=== PATIENT | female | born 1995 | race American Indian/Alaskan Native ===

== ENCOUNTER 2021-09-27 20:44 | Emergency (ER) | payer MEDICAID ==
[2021-09-27] MEDS ORDERED: LACTATED RINGERS 1,000 ML IV ONE (21:28)
[2021-09-27 22:28] VITALS: BP 114/70
--- NOTE | 2021-09-27 23:37 | Emergency Department Report ---
HPI - General Chief Complaint: Upper Respiratory Infection PUI?: Yes Time Seen by Provider: 09/27/21 22:48 - HPI HPI: MSE 5 The patient is a 26-year-old female present with a chief complaint of URI symptoms. The patient states she has a history of seasonal allergies which usually flareup around this time leading to URIs. The patient states since last night she has had a sore throat watery eyes and a cough productive of clear with a tint of green sputum. Patient denies history of fever, abdominal pain or vaginal bleeding. The patient is approximately 28 weeks gestational age and was seen by OB prior to being sent to the ED. The patient was placed on the monitor for approximately 45-60 minutes. Patient has not been vaccinated against Covid ED Past Medical Hx - Past Medical History Previous Medical History?: No Hx Hypertension: Yes (PI 2017) - Surgical History Past Surgical History?: No - Family History Family history: no significant - Social History Smoking Status: Never Smoker Substance Use Type: None (Denies illicit drug use) - Medications Home Medications: Home Medications Medication Instructions Recorded Confirmed Last Taken Type Azithromycin [Zithromax Z-MUSTAPHA] 0 mg PO DAILY #6 tab 09/28/21 Unknown Rx ED Review of Systems ROS: Stated complaint: COLD SX Other details as noted in HPI Constitutional: denies: fever Eyes: denies: eye pain ENT: throat pain, congestion Respiratory: cough Cardiovascular: denies: chest pain Endocrine: no symptoms reported Gastrointestinal: denies: abdominal pain Genitourinary: denies: abnormal menses Musculoskeletal: denies: back pain Neurological: denies: headache Physical Exam - Physical Exam Vital Signs: Vital Signs 09/27/21 09/27/21 09/27/21 21:18 21:19 21:23 Temperature 99.1 F Pulse Rate 93 H 89 90 Respiratory 18 Rate Blood Pressure 115/75 Blood Pressure 115/75 [Right] O2 Sat by Pulse 100 100 100 Oximetry 09/27/21 09/27/21 09/27/21 21:28 21:33 21:38 Temperature Pulse Rate 97 H 94 H 97 H Respiratory Rate Blood Pressure Blood Pressure [Right] O2 Sat by Pulse 100 99 99 Oximetry 09/27/21 09/27/21 09/27/21 21:43 21:48 22:23 Temperature 99.5 F Pulse Rate 95 H 86 89 Respiratory 18 Rate Blood Pressure Blood Pressure 114/70 [Right] O2 Sat by Pulse 99 98 99 Oximetry Physical Exam: GENERAL: The patient is well-developed well-nourished female lying on stretcher not appearing to be in acute distress. [] HEENT: Normocephalic. Atraumatic. Extraocular motions are intact. Patient has moist mucous membranes. Oropharynx clear NECK: Supple. Trachea midline CHEST/LUNGS: Clear to auscultation. There is no respiratory distress noted. HEART/CARDIOVASCULAR: Regular. There is no tachycardia. There is no gallop rub or murmur. ABDOMEN: Abdomen is soft, nontender. Patient has normal bowel sounds. Gravid SKIN: There is no rash. There is no edema. There is no diaphoresis. NEURO: The patient is awake, alert, and oriented. The patient is cooperative. The patient has no focal neurologic deficits. The patient has normal speech. GCS 15 MUSCULOSKELETAL: There is no evidence of acute injury. ED Course Vital Signs 09/27/21 09/27/21 09/27/21 21:18 21:19 21:23 Temperature 99.1 F Pulse Rate 93 H 89 90 Respiratory 18 Rate Blood Pressure 115/75 Blood Pressure 115/75 [Right] O2 Sat by Pulse 100 100 100 Oximetry 09/27/21 09/27/21 09/27/21 21:28 21:33 21:38 Temperature Pulse Rate 97 H 94 H 97 H Respiratory Rate Blood Pressure Blood Pressure [Right] O2 Sat by Pulse 100 99 99 Oximetry 09/27/21 09/27/21 09/27/21 21:43 21:48 22:23 Temperature 99.5 F Pulse Rate 95 H 86 89 Respiratory 18 Rate Blood Pressure Blood Pressure 114/70 [Right] O2 Sat by Pulse 99 98 99 Oximetry - Consultations Consultation #1: 09/28/21 00:44 DIRECTOR OF OUTREACH paged 09/28/21 00:[address] Jimenez for Z-Mustapha. Patient may be discharged and follow-up in 1 week ED Medical Decision Making - Radiology Data Radiology results: report reviewed (Chest x-ray), image reviewed (Chest x-ray) interpreted by me: Chest x-ray-no definite focal infiltrates, no pneumothorax [facility] [address] [place] [address] XRay Report Signed Patient: AMANDA SIERRA MR#: [id number] : 1995 Acct:[id number] Age/Sex: 26 / F ADM Date: 09/27/21 Loc: [facility] 2014- Attending Dr: Ordering Physician: ANGEL ALLEN MD Date of Service: 09/27/21 Procedure(s): XR chest 1V ap Accession Number(s): [id number] cc: ANGEL ALLEN MD Fluoro Time In Minutes: CHEST 1 VIEW 09/27/2021 10:38 PM INDICATION / CLINICAL INFORMATION: chest pain. COMPARISON: None available. FINDINGS: SUPPORT DEVICES: None. HEART / MEDIASTINUM: No significant abnormality. LUNGS / PLEURA: No significant pulmonary or pleural abnormality. No pneumothorax. ADDITIONAL FINDINGS: No significant additional findings. IMPRESSION: 1. No acute findings. Signer Name: Tanya Camp MD Signed: 09/27/2021 11:41 PM Workstation Name: [id number] Transcribed By: DT Dictated By: Jimenez Camp MD Electronically Authenticated By: Jimenez Camp MD Signed Date/Time: 09/27/212340 DD/ 40 TD/TT: Print Cancel - Medical Decision Making 2-minute walking SPO2 90% on room air - Differential Diagnosis Sinusitis, bronchitis, pneumonia, Covid, influenza Critical care attestation.: If time is entered above; I have spent that time in minutes in the direct care of this critically ill patient, excluding procedure time. ED Disposition Clinical Impression: URI (upper respiratory infection) Disposition: HOME / SELF CARE / HOMELESS Is pt being admited?: No Does the pt Need Aspirin: No Condition: Stable Instructions: Form - Movement Counts, COVID-19: How to Protect Yourself and Others - CDC, Labor/ Labor Instructions, Upper Respiratory Infection, Adult, [id number] Additional Instructions: Return to the emergency department should you develop worsening symptoms, inability to tolerate food or liquids, high fever or any other concerns Prescriptions: Azithromycin [Zithromax Z-MUSTAPHA] 0 mg PO DAILY #6 tab Referrals: ELSY RAMIREZ MD [Primary Care Provider] - 7 Days Forms: [facility] Discharge Summary Time of Disposition: 00:53
--- NOTE | 2021-09-27 23:45 | XRay Report ---
CHEST 1 VIEW 09/27/2021 10:38 PM INDICATION / CLINICAL INFORMATION: chest pain. COMPARISON: None available. FINDINGS: SUPPORT DEVICES: None. HEART / MEDIASTINUM: No significant abnormality. LUNGS / PLEURA: No significant pulmonary or pleural abnormality. No pneumothorax. ADDITIONAL FINDINGS: No significant additional findings. IMPRESSION: 1. No acute findings. Signer Name: Tanya Camp MD Signed: 09/27/2021 11:41 PM Workstation Name: [id number]
== END 2021-09-28 01:35 | disposition home or self-care (01) ==
LOC: ED 20:44 → TRG 20:44 → APU 20:46 → TRG 20:46 → APU 20:46 → EDSTATUS 22:13 → ED 09-28 01:35
DX: O26.893 Other specified pregnancy related conditions, third trimester (principal); J06.9 Acute upper respiratory infection, unspecified; I10 Essential (primary) hypertension; Z3A.28 28 weeks gestation of pregnancy
CPT/HCPCS: 59025; 71045; 87400; 99283

== ENCOUNTER 2021-12-10 12:14 | Outpatient (CLI) | payer MEDICAID ==
[2021-12-10 13:04] VITALS: BP 103/62
== END 2021-12-10 17:06 | disposition home or self-care (01) ==
LOC: TRG 12:14 → APU 12:19 → TRG 17:06
PROVIDERS: ATTEND Obstetrics & Gynecology
DX: Z34.93 Encounter for supervision of normal pregnancy, unspecified, third trimester (principal); Z3A.39 39 weeks gestation of pregnancy
CPT/HCPCS: 59025

== ENCOUNTER 2021-12-11 10:27 | Inpatient (IN) | payer MEDICAID ==
[2021-12-11] MEDS ORDERED: LACTATED RINGERS 1,000 ML IV SCH ×2 (11:00→13:30)
[2021-12-11 12:41] LABS: Basophils % (Auto) 0.5 % (0.0-1.8); Eosinophils # (Auto) 0.1 K/mm3 (0.0-0.4); Eosinophils % (Auto) 1.4 % (0.0-4.3); Hematocrit 38.5 % (30.3-42.9); Hemoglobin 12.9 gm/dl (10.1-14.3); Lymphocytes # (Auto) 1.7 K/mm3 (1.2-5.4); Lymphocytes % (Auto) 29.8 % (13.4-35.0); Mean Corpuscular HGB Conc 34 % (30-34); Mean Corpuscular Volume 94 fl (79-97); Monocytes # (Auto) 0.6 K/mm3 (0.0-0.8); Monocytes % (Auto) 10.2 % (0.0-7.3); Platelet Count 137 K/mm3 (140-440); Red Cell Distribution Width 14.1 % (13.2-15.2)
[2021-12-11] MEDS ORDERED: LIDOCAINE (2%) 20 MG/1 ML VIAL 20 ML MDV INFILTRATI ONE (13:20)
[2021-12-11] MEDS ORDERED: ePHEDrine SULFATE 50 MG/1 ML INJ IV PRN ×3 (13:20→19:06)
[2021-12-11] MEDS ORDERED: OXYTOCIN 10 UNIT/1 ML INJ IM PRN (13:20)
[2021-12-11] MEDS ORDERED: ONDANSETRON 4 MG/2 ML INJ IV PRN (13:20)
[2021-12-11] MEDS ORDERED: TERBUTALINE 1 MG/1 ML INJ SUB-Q PRN (13:20)
[2021-12-11] MEDS ORDERED: METHYLERGONOVINE MALEATE 0.2 MG/ML VIAL IM PRN (13:20)
[2021-12-11] MEDS ORDERED: ACETAMINOPHEN 325 MG TAB PO PRN (13:20)
[2021-12-11] MEDS ORDERED: fentaNYL 100 MCG/2 ML INJ IV PRN (13:20)
[2021-12-11] MEDS ORDERED: NalbUPHINE 10 MG/1 ML INJ IV PRN (13:20)
[2021-12-11] MEDS ORDERED: BUTORPHANOL 2 MG/1 ML INJ IV PRN (13:20)
[2021-12-11] MEDS ORDERED: CARBOPROST TROMETHAMINE 250 MCG/1 ML INJ IM PRN (13:20)
[2021-12-11] MEDS ORDERED: LOPERAMIDE 2 MG CAP PO PRN (13:20)
[2021-12-11] MEDS ORDERED: MINERAL OIL 30 ML ORAL LIQD PO PRN (13:20)
[2021-12-11] MEDS ORDERED: miSOPROStol 200 MCG TAB PR PRN (13:20)
--- NOTE | 2021-12-11 13:28 | History and Physical Report ---
History of Present Illness Date of examination: 12/11/21 Date of admission: 12/11/2021 Chief complaint: "My water broke" History of present illness: 26yo, @ 39.2 wks, initiated care with [facility] at 24.5 wks gestation. has been complicated by late entry and lapses in PNC, trichomonas, UTI, thrombocytopenia and HSV2. She presents today to [facility] with reports of "my water broke at 0130 this morning". ROM+ was completed and confirmed SROM. Reports positive FM. Denies any VB. Labs: B+, antibody negative; rubella immune; VDRL non-reactive; HBsAg negative; HIV negative; GC/Chlamydia/Trichomonas negative; 1 hr gtt: 97; plts 143; GBS ne gative. 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 denies: smoking, alcohol abuse, prescription drug abuse, IV drug use - Obstetrical History Expected Date of Delivery: 12/16/21 Actual Gestation: 39 Week(s) 2 Day(s) : 3 Para: 1 Hx # Term Pregnancies: 1 Number of Pregnancies: 0 Spontaneous Abortions: 0 Induced : 1 Number of Living Children: 1 #1 Gender: Male year: 2019 Birthweight: 3.515 kg Method of Delivery: Vaginal Gestational age at delivery: 40 Complications: none Medications and Allergies Allergies Allergy/AdvReac Type Severity Reaction Status Date / Time Penicillins Allergy Hives Verified 09/27/21 21:27 Home Medications Medication Instructions Recorded Confirmed Last Taken Type No Known Home Medications [No 12/10/21 12/11/21 Unknown History Reported Home Medications] Active Meds: Active Medications Acetaminophen (Acetaminophen 325 Mg Tab) 650 mg PO Q4H PRN PRN Reason: Pain, Mild (1-3) Butorphanol Tartrate (Butorphanol 2 Mg/1 Ml Inj) 2 mg IV Q2H PRN PRN Reason: Pain , Severe (7-10) Carboprost Tromethamine (Carboprost Tromethamine 250 Mcg/1 Ml Inj) 250 mcg IM ONCE PRN PRN Reason: Uterine Bleeding Ephedrine Sulfate (Ephedrine Sulfate 50 Mg/1 Ml Inj) 10 mg IV Q2M PRN PRN Reason: Hypotension Fentanyl (Fentanyl 100 Mcg/2 Ml Inj) 100 mcg IV Q2H PRN PRN Reason: Pain,Severe (7-10) LABOR PAIN Lactated Ringer's (Lactated Ringers) 1,000 mls @ 125 mls/hr IV DIRECT LG Last Admin: 12/11/21 12:29 Dose: 125 mls/hr Oxytocin/Sodium Chloride (Pitocin/Ns 30 Unit/500ml) 30 units in 500 mls @ 2 mls/hr IV TITR LG; Protocol Lactated Ringer's (Lactated Ringers) 1,000 mls @ 125 mls/hr IV DIRECT LG Oxytocin/Sodium Chloride (Pitocin/Ns 30 Unit/500ml) 30 units in 500 mls @ 40 mls/hr IV TITR LG; Protocol Lidocaine (Lidocaine (2%) 20 Mg/1 Ml Vial 20 Ml Mdv) 20 ml INFILTRATI ONCE ONE Stop: 12/11/21 13:21 Loperamide HCl (Loperamide 2 Mg Cap) 2 mg PO ONCE PRN PRN Reason: give with Hemabate Methylergonovine Maleate (Methylergonovine Maleate 0.2 Mg/Ml Vial) 0.2 mg IM ONCE PRN PRN Reason: Uterine Bleeding Mineral Oil (Mineral Oil 30 Ml Oral Liqd) 30 ml PO QHS PRN PRN Reason: Constipation Misoprostol (Misoprostol 200 Mcg Tab) 800 mcg MN ONCE PRN PRN Reason: Uterine Bleeding Nalbuphine HCl (Nalbuphine 10 Mg/1 Ml Inj) 10 mg IV Q2H PRN PRN Reason: Pain, Moderate (4-6) Ondansetron HCl (Ondansetron 4 Mg/2 Ml Inj) 4 mg IV Q8H PRN PRN Reason: Nausea And Vomiting Oxytocin (Oxytocin 10 Unit/1 Ml Inj) 10 unit IM ONCE PRN PRN Reason: Uterine Bleeding Terbutaline Sulfate (Terbutaline 1 Mg/1 Ml Inj) 0.25 mg SUB-Q ONCE PRN PRN Reason: Hyperstimulation/Hypertonicity Review of Systems All systems: negative Genitourinary: leakage of fluid (at 0130, clear) - Vital Signs Vital signs: Vital Signs Pulse BP 78 113/63 12/11/21 10:56 12/11/21 10:56 Temp Pulse Resp BP Pulse Ox 98.5 F 80 15 108/66 100 12/11/21 10:58 12/11/21 13:22 12/11/21 12:34 12/11/21 12:34 12/11/21 13:22 - Physical Exam Breasts: Positive: normal Cardiovascular: Regular rate Lungs: Positive: Normal air movement Abdomen: Positive: other (gravid) Uterus: Positive: enlarged Extremities: Positive: normal Deep Tendon Reflex Grade: Normal +2 - Obstetrical FHR: category 1 Uterine Contraction Monitor Mode: External Cervical Dilatation: 3.5 (per RN) Cervical Effacement Percentage: 50 station: -2 Uterine Contraction Pattern: Irregular Uterine Tone Measurement Phase: Resting Uterine Contraction Intensity: Mild Results Result Diagrams: 12/11/21 12:24 Abnormal lab results 12/11/21 12/11/21 Range/Units 11:10 12:24 Plt Count 137 L (140-440) K/mm3 [place] % (Auto) 10.2 H (0.0-7.3) % Membranes Rupture Positive A (Negative) All other labs normal. Assessment and Plan - Patient Problems (1) SROM (spontaneous rupture of membranes) Current Visit: Yes Status: Acute Plan to address problem: Admit to L&D Initiate Pitocin if ctx pattern infrequent Pain meds as desired per orders Anticipate (2) HSV-2 seropositive Current Visit: Yes Status: Acute
[2021-12-11] MEDS ORDERED: OXYTOCIN DRIP 30 UNITS/500 ML BAG IV SCH ×2 (14:00)
[2021-12-11 14:38] LABS: Hemoglobin 11.3 gm/dl (10.1-14.3); Mean Corpuscular HGB Conc 34 % (30-34); Mean Corpuscular Volume 93 fl (79-97); Platelet Count 133 K/mm3 (140-440); Red Blood Count 3.54 M/mm3 (3.65-5.03); Red Cell Distribution Width 13.8 % (13.2-15.2)
[2021-12-11] MEDS ORDERED: NALOXONE 2 MG/2 ML INJ IV PRN ×2 (18:24→19:06)
--- NOTE | 2021-12-11 18:24 | Anesthesia Consultation ---
Anesthesia Consult and Med Hx Date of service: 12/11/21 - Airway Anesthetic Teeth Evaluation: Poor ROM Head & Neck: Adequate Mental/Hyoid Distance: Adequate Mallampati Class: Class II - Pulmonary Exam CTA: Yes - Cardiac Exam Cardiac Exam: RRR - Pre-Operative Health Status ASA Pre-Surgery Classification: ASA2 Proposed Anesthetic Plan: Epidural - Pulmonary Hx Smoking: No Hx Asthma: No COPD: No Hx Pneumonia: No - Cardiovascular System Hx Hypertension: No Hx Cardia Arrhythmia: No Hx Heart Murmur: No - Central Nervous System Hx Neuromuscular Disorder: No Hx Seizures: No Hx Back Pain: Yes Hx Psychiatric Problems: No - Gastrointestinal Hx Gastroesophageal Reflux Disease: Yes - Endocrine Hx Renal Disease: No Hx End Stage Renal Disease: No Hx Liver Disease: No Hx Insulin Dependent Diabetes: No Hx Non-Insulin Dependent Diabetes: No Hx Hypothyroidism: No Hx Hyperthyroidism: No - Hematic Hx Anemia: No Hx Sickle Cell Disease: No - Other Systems Hx Alcohol Use: No Hx Substance Use: No Hx Obesity: No
[2021-12-11] MEDS ORDERED: fentaNYL-BUPIV 2 MCG/ML-0.125% 200 MCG/100 ML BAG EPIDURAL SCH ×2 (19:00→20:00)
--- NOTE | 2021-12-11 19:06 | Progress Note ---
Labor Epidural - Labor Epidural Start Time: 18:23 Stop Time: 19:01 Performed by:: GREGORY CANO Procedure: Patient is requesting epidural for labor pain. H&P and labs reviewed. Procedure explained, questions answered, consent obtained. Patient placed in sitting position with monitors applied. Timeout performed immediately before start of procedure. Prep/drape in usual sterile fashion. Skin localized 3 mL 1% lidocaine at L[3]-L[4] interspace. 17-gauge Tuohy epidural needle advanced to BOSSMAN with saline at [6] cm. No blood/CSF noted via epidural needle. 26g spinal needle advanced into intrathecal space until clear, free flowing CSF noted. 0.5cc 0.75% hyperbaric bupivacaine + 0.5cc sterile saline injected into intrathecal space. Spinal needle removed and epidural catheter advanced to [9] cm. Negative aspiration for blood and CSF via catheter, negative response to test dose 3 ml 1.5% lidocaine w/ epi. Sterile dressing applied followed by tape reinforcement. Patient tolerated procedure well. No immediate complications noted.
[2021-12-11] MEDS ORDERED: WITCH HAZEL/ GLYCERIN PAD TP PRN (22:50)
[2021-12-11] MEDS ORDERED: MAGNESIUM HYDROXIDE (MOM) ORAL LIQD UDC PO PRN (22:50)
[2021-12-11] MEDS ORDERED: diphenhydrAMINE 25 MG CAP PO PRN (22:50)
[2021-12-11] MEDS ORDERED: oxyCODONE /ACETAMINOPHEN 5-325MG TAB PO PRN (22:50)
[2021-12-11] MEDS ORDERED: PROMETHAZINE 25 MG TAB PO PRN (22:50)
[2021-12-11] MEDS ORDERED: LANOLIN/ZINC/DIMETHICONE (LANSINOH) 7 GM TP PRN (22:50)
--- NOTE | 2021-12-11 22:56 | Procedure Note ---
OB Delivery Note - Delivery Date of Delivery: 12/11/21 (8183) Surgeon: SANTOS NEGRON (CNM) Estimated blood loss: 100cc - Vaginal Delivery presentation: vertex Delivery position: OA (MIYA) Intrapartum events: none Delivery induction: none Delivery augmentation: rupture of membranes (SROM on 12/11/21 @0130, clear fluids) Delivery monitor: external FHT, external uterine Route of delivery: Delivery placenta: spontaneous (2218, barrera) Delivery cord: 3 umbilical vessels Episiotomy: none Delivery laceration: none Anesthesia: epidural Delivery comments: of viable, crying male infant placed directly on maternal abdomen. Cord double clamped, cut by FOB after cessation of pulsation. Placenta spontaneously delivered, disposed per hospital policy. Uterus firm @ U-3, hemostasis maintained. Perineum intact. 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 - Infant A at 1 minute: 8 at 5 minutes: 9 Gender: Male (Weight: 3200 gms (7lbs 1oz) 21 inches)
[2021-12-11] MEDS: IBUPROFEN 600 MG TAB PO SCH (23:26)
--- NOTE | 2021-12-12 07:43 | Progress Note ---
Assessment and Plan A: PPD#1 s/p at term P: Routine care Subjective - Subjective Date of service: 12/12/21 Principal diagnosis: s/p at term Interval history: Pt reports cramping this morning, but otherwise feels well. No overnight events. Patient reports: appetite normal, voiding normally, ambulating normally : doing well Objective - Vital Signs Latest vital signs: Vital Signs Temp Pulse Resp BP BP Pulse Ox 12/12/21 04:51 97.9 F 63 20 103/61 97 12/12/21 01:00 98.4 F 73 16 117/65 95 12/12/21 00:01 78 94 12/11/21 23:58 91 H 99 12/11/21 23:55 84 93 12/11/21 23:53 89 100 12/11/21 23:48 74 99 12/11/21 23:47 68 110/67 12/11/21 23:43 75 98 12/11/21 23:40 80 94 12/11/21 23:38 82 100 12/11/21 23:33 86 99 12/11/21 23:32 93 H 113/67 93 12/11/21 23:28 84 100 12/11/21 23:23 75 99 12/11/21 23:18 79 100 12/11/21 23:17 80 110/69 12/11/21 23:13 86 100 12/11/21 23:08 84 95 12/11/21 23:03 81 100 12/11/21 23:02 81 149/77 12/11/21 22:58 76 99 12/11/21 22:53 76 98 12/11/21 22:52 83 90 12/11/21 22:48 79 99 12/11/21 22:47 98.9 F 81 17 112/73 12/11/21 22:45 87 89 12/11/21 22:43 77 99 12/11/21 22:38 78 100 12/11/21 22:33 80 100 12/11/21 22:32 82 124/66 12/11/21 22:28 90 100 12/11/21 22:23 82 100 12/11/21 22:18 86 100 12/11/21 22:17 84 119/68 12/11/21 22:13 95 H 99 01/20/22 22:08 91 H 99 22 22:03 90 98 2022 22:02 86 132/79 2022 21:58 85 99 2022 21:53 73 99 2022 21:48 78 99 2022 21:47 76 118/70 2022 21:43 82 100 2022 21:38 75 100 2022 21:33 81 117/67 98 2022 21:28 78 100 2022 21:23 87 97 2022 21:18 80 99 2022 21:13 75 100 2022 21:08 81 99 2022 21:03 84 99 22 21:02 74 127/80 2022 20:58 82 99 2022 20:53 70 99 22 20:48 66 113/68 99 2022 20:43 70 98 22 20:38 71 98 22 20:33 76 116/77 99 2022 20:28 69 99 2022 20:23 65 99 2022 20:18 65 100 2022 20:17 64 119/75 22 20:13 70 98 2022 20:08 67 99 2022 20:03 68 98 2022 20:02 68 120/73 2022 19:58 73 100 2022 19:57 85 92 2022 19:53 68 99 2022 19:48 76 98 2022 19:47 73 123/79 2022 19:43 69 99 2022 19:38 85 98 2022 19:33 66 99 2022 19:32 67 121/75 2022 19:28 67 100 20/22 19:23 70 100 2022 19:20 69 94 2022 19:18 82 98 2022 19:17 72 118/71 2022 19:12 77 99 2022 19:09 70 122/69 93 2022 19:07 74 100 12/11/21 19:02 73 121/63 100 12/11/21 19:00 74 122/61 12/11/21 18:58 73 125/62 12/11/21 18:57 75 100 12/11/21 18:56 87 118/63 22 18:54 81 127/75 12/11/21 18:52 83 123/64 100 12/11/21 18:50 86 121/65 12/11/21 18:48 88 124/77 12/11/21 18:47 80 100 12/11/21 18:46 73 117/72 12/11/21 18:44 77 114/72 12/11/21 18:42 81 99 12/11/21 18:39 87 131/61 12/11/21 18:37 81 100 12/11/21 18:36 85 12/11/21 18:32 76 100 12/11/21 18:27 83 125/75 100 12/11/21 18:22 88 99 12/11/21 18:17 87 100 12/11/21 18:12 92 H 100 12/11/21 18:07 91 H 100 12/11/21 18:02 82 99 12/11/21 17:58 80 108/62 12/11/21 17:57 80 100 12/11/21 17:52 91 H 99 12/11/21 17:47 79 100 12/11/21 17:42 85 117/74 100 12/11/21 17:33 80 98 12/11/21 17:28 73 99 12/11/21 17:27 75 122/69 12/11/21 17:23 74 99 12/11/21 17:18 77 98 12/11/21 17:13 80 100 12/11/21 17:08 83 99 12/11/21 17:03 82 100 12/11/21 16:58 97 H 116/79 99 12/11/21 16:53 84 99 12/11/21 16:48 78 98 2022 16:43 81 99 22 16:38 81 97 12/11/21 16:33 81 99 20 16:29 75 112/73 12/11/21 16:28 77 97 12/11/21 16:23 75 98 12/11/21 16:18 80 97 12/11/21 16:13 79 98 12/11/21 16:08 76 97 12/11/21 16:03 77 97 12/11/21 15:58 73 98 12/11/21 15:57 76 120/80 12/11/21 15:53 71 98 12/11/21 15:48 75 100 12/11/21 15:43 78 100 12/11/21 15:33 81 100 12/11/21 15:28 86 98 12/11/21 15:23 78 99 12/11/21 15:18 78 99 12/11/21 15:13 81 98 12/11/21 15:08 78 97 12/11/21 15:03 77 97 12/11/21 14:58 85 97 12/11/21 14:53 78 100 12/11/21 14:48 78 100 12/11/21 14:43 74 99 12/11/21 14:38 72 99 12/11/21 14:33 78 99 12/11/21 14:28 76 98 12/11/21 14:23 74 99 12/11/21 14:18 78 99 12/11/21 14:13 77 100 12/11/21 14:08 77 100 12/11/21 14:03 72 99 12/11/21 13:58 74 99 12/11/21 13:53 81 98 12/11/21 13:48 77 99 12/11/21 13:43 82 99 12/11/21 13:38 82 99 12/11/21 13:33 75 100 12/11/21 13:28 79 100 12/11/21 13:22 80 100 12/11/21 13:17 80 100 12/11/21 13:12 84 99 12/11/21 13:07 77 100 12/11/21 13:02 76 100 12/11/21 12:57 89 100 12/11/21 12:52 84 100 12/11/21 12:47 79 100 12/11/21 12:42 80 100 12/11/21 12:37 79 100 12/11/21 12:34 86 15 108/66 100 12/11/21 12:32 87 100 12/11/21 12:27 76 100 12/11/21 12:22 86 100 12/11/21 12:15 80 108/66 12/11/21 10:58 98.5 F 78 16 113/63 12/11/21 10:56 78 113/63 Intake and Output 12/11/21 12/12/21 12/12/21 22:59 06:59 14:59 Intake Total 480 Output Total 350 500 Balance -350 -20 Intake: Intake, Free Water 480 Output: Urine 350 500 Indwelling Catheter 350 Void 500 Other: Total, Output Amount 350 500 Estimated Blood Loss 100 - Exam Breasts: Present: deferred Abdomen: Present: soft Uterus: Present: fundal height at umbilicus Extremities: Present: normal - Labs Labs: Abnormal lab results 12/11/21 12/11/21 12/11/21 Range/Units 11:10 12:24 14:11 RBC 3.54 L (3.65-5.03) M/mm3 Plt Count 137 L 133 L (140-440) K/mm3 [place] % (Auto) 10.2 H (0.0-7.3) % Membranes Rupture Positive A (Negative)
[2021-12-12] MEDS: PRENATAL VIT27-FE FUMARATE-FOLIC ACID VIT TAB PO SCH (09:22)
[2021-12-12 11:21] LABS: Hematocrit 30.6 % (30.3-42.9); Hemoglobin 10.4 gm/dl (10.1-14.3)
--- NOTE | 2021-12-12 11:46 | Post Anesthesia Evaluation ---
- Post Anesthesia Evaluation Patient Participated: Yes Airway Patent: Yes Stable Respiratory Function: Yes Nausea/Vomiting: No Temp > 96.8F: Yes Pain Manageable: Yes Adequeate Hydration: Yes Anesthesia Complications: No Block Receding Appropriately: Yes Patient on Ventilator: No
[2021-12-12] MEDS: IBUPROFEN 600 MG TAB PO SCH ×3 (15:53→22:31)
[2021-12-13] MEDS: IBUPROFEN 600 MG TAB PO SCH ×3 (04:21→17:15)
[2021-12-13] MEDS: PRENATAL VIT27-FE FUMARATE-FOLIC ACID VIT TAB PO SCH (10:46)
--- NOTE | 2021-12-13 15:05 | Progress Note ---
Assessment and Plan day 2 status post . Doing well. Patient is breast-feeding. Plan for discharge on today. Subjective - Subjective Date of service: 12/13/21 Principal diagnosis: s/p at term Patient reports: appetite normal, voiding normally, pain well controlled, ambulating normally [place]: doing well Objective - Vital Signs Latest vital signs: Vital Signs Temp Pulse Resp BP Pulse Ox Pulse Ox 12/13/21 11:34 18 12/13/21 08:00 99 12/13/21 07:24 98.1 F 70 18 107/63 98 12/13/21 05:10 99 12/13/21 04:21 99 12/13/21 00:24 97.9 F 68 18 125/77 100 12/12/21 19:35 99 12/12/21 15:53 16 12/12/21 15:20 98.2 F 63 18 128/64 99 Intake and Output 12/13/21 12/13/21 12/13/21 06:59 14:59 22:59 Intake Total 360 240 Balance 360 240 Intake: Oral 360 240 Other: Total, Intake Amount 120 240 # Voids Void 1 1 - Exam Breasts: Present: deferred Cardiovascular: Present: Regular rate, Normal S1, Normal S2 Lungs: Present: Clear to auscultation, Normal air movement Abdomen: Present: normal appearance, soft Vulva: both: normal Uterus: Present: normal, firm Extremities: Present: normal
--- NOTE | 2021-12-13 15:06 | Discharge Summary ---
Providers - Providers Date of Admission: 12/11/21 13:20 Date of discharge: 12/13/21 Attending physician: HINA MENA 12/11/21 22:51 Consult to Dive Superintendent [CONS] Routine Reason For Exam: assistance with , SNS Primary care physician: HINA MENA Hospitalization Reason for admission: active labor Delivery: Episiotomy: none Other procedures: none complications: none Discharge diagnosis: IUP at term delivered [place] baby: male Condition at discharge: Good Disposition: 01 HOME / SELF CARE / HOMELESS Plan - Discharge Medications Prescriptions: Ibuprofen [Motrin] 600 mg PO Q6H PRN #30 tablet PRN Reason: Pain - Provider Discharge Summary Activity: routine, no sex for 6 weeks, no heavy lifting 4 weeks, no strenuous exercise Diet: routine Instructions: routine Additional instructions: [] Smoking cessation referral if applicable(refer to patient education folder for contact #) [] Refer to [facility] Booklet Call your doctor immediately for: * Fever > 100.5 * Heavy vaginal bleeding ( >1 pad per hour) * Severe persistent headache * Shortness of breath * Reddened, hot, painful area to leg or breast * Drainage or odor from incision. * Keep incision clean and dry at all times and follow doctor's instructions regarding bathing/showering - Follow up plan Follow up: HINA MENA MD [Primary Care Provider] - 6 Weeks
[2021-12-13 16:56] VITALS: BP 107/66
== END 2021-12-13 18:05 | disposition home or self-care (01) | DRG 774 ==
LOC: TRG 10:27 → APU 10:28 → LD 12:10 → TRG 13:28 → OB 12-12 00:42
PROVIDERS: ADMIT Obstetrics & Gynecology; ATTEND Obstetrics & Gynecology
PROC: 10E0XZZ Delivery of Products of Conception, External Approach (ICD-10-PCS; principal; 2021-12-11)
PROC: 3E0R3BZ Introduction of Anesthetic Agent into Spinal Canal, Percutaneous Approach (ICD-10-PCS; 2021-12-11)
PROC: 00HU33Z Insertion of Infusion Device into Spinal Canal, Percutaneous Approach (ICD-10-PCS; 2021-12-11)
DX: O98.32 Other infections with a predominantly sexual mode of transmission complicating childbirth (principal); Z3A.39 39 weeks gestation of pregnancy; Z37.0 Single live birth; Z20.822 Contact with and (suspected) exposure to COVID-19; A60.00 Herpesviral infection of urogenital system, unspecified; Z88.0 Allergy status to penicillin; O99.62 Diseases of the digestive system complicating childbirth; K21.9 Gastro-esophageal reflux disease without esophagitis
CPT/HCPCS: 36415; 59025; 84112; 85014; 85018; 85025; 85027; 86592; 86850; 86900; 86901; G0378; J3490; J2590; J3010; J7120; U0003